=== PATIENT | female | born 1990 | race Caucasian/White ===

== ENCOUNTER 2019-10-09 10:19 | Inpatient (IN) | payer OTHER ==
[2019-10-09] VITALS (39 sets, daily range): BP systolic 97–137; BP diastolic 50–85
[~2019-10-09] VITALS: Ht 165.1 cm; Wt 82.0 kg
[2019-10-09] MEDS ORDERED: PRENTAB9 PO (10:50)
[2019-10-09] MEDS ORDERED: MAPA500T2 PO (10:50)
[2019-10-09] MEDS ORDERED: TRIA25CR TOP (10:52)
[2019-10-09] MEDS ORDERED: FISH1000 PO (10:52)
[2019-10-09] MEDS ORDERED: DERM1TAB2 PO (10:52)
[2019-10-09] MEDS: LACTATED RINGER'S 1000 ML IV STA ×2 (11:18→12:00)
[2019-10-09] MEDS ORDERED: OXYTOCIN DRIP 30 UNITS in IV 1 EA IV SCH ×2 (11:30→21:19)
[2019-10-09 11:59] LABS: BASO % 0.2 % (0.0-1.0); EOS % 0.1 % (0.0-3.0); HEMATOCRIT 36.4 % (36.0-47.0); HEMOGLOBIN 12.3 g/dl (12.0-15.5); LYMPH # 1.1 10^3/uL (1.5-5.0); LYMPH % 7.1 % (24.0-44.0); MEAN CORPUSCULAR HEMOGLOBIN 29.4 pg (27.0-33.0); MEAN CORPUSCULAR HGB CONC 33.8 g/dl (32.0-36.5); MEAN CORPUSCULAR VOLUME 87.1 fl (80.0-96.0); MONO # 0.9 10^3/uL (0.0-0.8); MONO % 5.6 % (0.0-5.0); NEUTROPHILS # 13.6 10^3/uL (1.5-8.5); NEUTROPHILS % 86.4 % (36.0-66.0); PLATELET COUNT, AUTOMATED 227 10^3/uL (150-450); RED BLOOD COUNT 4.18 10^6/uL (4.00-5.40); WHITE BLOOD COUNT 15.8 10^3/uL (4.0-10.0)
[2019-10-09] MEDS: LR 1,000 ML IV SCH ×3 (12:00→16:09)
[2019-10-09] MEDS ORDERED: FENTANYL 2MCG/ML ROPIVACAINE 0.2% IN 0.9% NACL 100ML IVBAG As Ordered ONE (12:55)
[2019-10-09] MEDS ORDERED: diphenhydrAMINE 50MG/ML VIAL (J1200) IV PRN (14:15)
[2019-10-09] MEDS ORDERED: ONDANSETRON 4MG/2ML VIAL IV PRN (14:15)
[2019-10-09] MEDS ORDERED: EPIDURAL COMMENT XX SCH (14:15)
[2019-10-09] MEDS ORDERED: NALOXONE INJ 0.4MG/1ML VIAL (J2310 PER 1MG) IV PRN (14:15)
[2019-10-09] MEDS ORDERED: LACTATED RINGER'S 1000 ML IV PRN (14:15)
[2019-10-09] MEDS ORDERED: REFRIGERATOR IV KEYS XX PRN (14:15)
[2019-10-09] MEDS ORDERED: EPIDURAL/PCA KEYS XX PRN (14:15)
[2019-10-09] MEDS ORDERED: FENTANYL/ROPIVACAINE/NACL BAG 100 ML EPIDURAL SCH (14:15)
[2019-10-09] MEDS: ePHEDrine SULFATE 25 MG/5 ML(5MG/ML) SYRINGE IV PRN ×3 (14:21→14:28)
[2019-10-09] MEDS ORDERED: cefTRIAXone SOD 1 GM in D5W MINI-BAG PLUS 50 ML IV ONE (19:00)
[2019-10-09] MEDS ORDERED: ACETAMINOPHEN 650 MG SUPP PR ONE (19:00)
--- NOTE | 2019-10-09 21:23 | DNPDOC ---
[facility] Delivery Note Delivery Note DATE OF DELIVERY: 10/09/2019 PREDELIVERY DIAGNOSIS: 40-4/7 weeks' gestation and labor. POST DELIVERY DIAGNOSIS: Delivered. PROCEDURE: Spontaneous vaginal delivery. HOOKMAN: Dr. Hogan ANESTHESIA: Epidural. ESTIMATED BLOOD LOSS: 400 mL. FINDINGS: 7 pound 0 ounce 3480gm boy infant, Score 9/9, nuchal cord times x1. DELIVERY SUMMARY: Patient is a 29-year-old 1 now para 1 who was admitted to labor and delivery for active labor for 12hours. Patient AROM clear around 1451. Baby [boy] head was delivered without difficulty over intact perineum in OA position at 2041. The nose and mouth were bulb suctioned. x1 nuchal cord was noted. The shoulders were then delivered without difficulty. Infant was handed on mother's belly. Cord was then clamped x2 and cut after pulsation. Pitocin bolus was started. Perineum and vagina was inspected and found to have a 2nd degree laceration. This was repaired with 2-0 chromic after the EAS was reinforced with 2 figure of 8 stitches with 0 vicryl. The placenta was then delivered at 2045 spontaneously intact. Cord had a 3 vessel cord. EBL was 400mL. The vagina and perineum were reinspected and no further lacerations were found and hemostasis was good. Fundus was firm. Patient tolerated delivery well. Connie Hogan MD October 09, 2019 19:08
[2019-10-09] MEDS ORDERED: ACETAMINOPHEN 500 MG TAB PO PRN (21:30)
[2019-10-09] MEDS ORDERED: ONDANSETRON 4 MG ORAL DISINTEGRATING TAB PO PRN (21:30)
[2019-10-09] MEDS ORDERED: diphenhydrAMINE 25MG CAP PO PRN (21:30)
[2019-10-09] MEDS ORDERED: MEASLES,MUMPS,RUBELLA VACCINE INJ (MMR-II) (90707) SC SCH (21:30)
[2019-10-09] MEDS ORDERED: SIMETHICONE 80 MG CHEW TAB PO PRN (21:30)
[2019-10-09] MEDS ORDERED: CALCIUM CARBONATE 500 MG CHEW U/D PO PRN (21:30)
[2019-10-09] MEDS ORDERED: METHYLERGONOVINE MALEATE 0.2 MG TAB PO PRN (21:30)
[2019-10-09] MEDS ORDERED: DIBUCAINE 1% OINTMENT 30GM TOP PRN (21:30)
[2019-10-09] MEDS ORDERED: MOM 30ML SUSPENSION UDC PO PRN (21:30)
[2019-10-10 06:15] VITALS: BP 128/77
--- NOTE | 2019-10-10 06:45 | IPNPDOC ---
Progress Note Date of Service: October 10, 2019 Day#: 1 Progress Note SUBJECT: Patient is a 29-year-old 1 now Para 1 status post uncomplicated spontaneous vaginal delivery with post 2nd degree laceration and repair, doing well day # 1. She has been ambulating, voiding spontaneously without issue and tolerating regular diet. Breast feeding without issue. Reports lochia is like a normal period. Patient is ambulating well. Reports some cramping with . Having tolerable pain especially with walking and getting up/down. OBJECTIVE: VITAL SIGNS: Within normal limits, afebrile. GENERAL: No acute distress HEENT: MMM BREAST: Nontender, no erythema CARDIOVASCULAR EXAMINATION: RRR RESPIRATORY EXAMINATION: Bilaterally clear ABDOMINAL EXAMINATION: Soft, appropriate tenderness, nondistended, fundus -2 PERINEUM: Intact, minimal lochia EXTREMITIES: mild edema, nontender ASSESSMENT: Patient is a 29-year-old 1 now Para 1 status post uncomplicated spontaneous vaginal delivery with post 2nd degree laceration and repair, doing well day # 1. Vitals within normal limits, afebrile, hemodynamically stable with no evidence of infection. PLAN: 1. Continue care.. 2. Tylenol and Motrin for pain. 3. Encourage breast feeding and ambulation. VS, I&O, [facility]H, [facility] Vital Signs/I&O Vital Signs Date Time Temp Pulse Resp B/P (MAP) Pulse Ox O2 Delivery O2 Flow Rate FiO2 10/09/19 18:17 123 20 131/67 (88) 10/09/19 18:12 100.4 10/09/19 14:25 100 Room Air Laboratory Data 24H LABS Laboratory Tests 2 10/09/19 11:26: Serology Scanned Report Hepatitis B Testing 10/09/19 11:45: Immature Granulocyte % (Auto) 0.6, Neutrophils (%) (Auto) 86.4H, Lymphocytes (%) (Auto) 7.1L, Monocytes (%) (Auto) 5.6H, Eosinophils (%) (Auto) 0.1, Basophils (%) (Auto) 0.2, Neutrophils # (Auto) 13.6H, Lymphocytes # (Auto) 1.1L, Monocytes # (Auto) 0.9H, Eosinophils # (Auto) 0.0, Basophils # (Auto) 0.0, Nucleated Red Blood Cells % (auto) 0.0 CBC/BMP Laboratory Tests 10/09/19 11:45 Connie Hogan MD October 09, 2019 19:12
[2019-10-10] MEDS: DOCUSATE SODIUM 100 MG CAP PO SCH ×2 (07:53→21:53)
[2019-10-10] MEDS: PRENATAL VITAMINS CHEWABLE TABLET PO SCH (07:53)
[2019-10-10] MEDS: IBUPROFEN 800 MG TAB PO PRN ×2 (07:55→18:26)
[2019-10-10 18:00] VITALS: BP 108/70
[2019-10-11 05:44] VITALS: BP 108/72
[2019-10-11] MEDS: DOCUSATE SODIUM 100 MG CAP PO SCH ×2 (07:28→20:22)
[2019-10-11] MEDS: PRENATAL VITAMINS CHEWABLE TABLET PO SCH (07:28)
[2019-10-11] MEDS: IBUPROFEN 800 MG TAB PO PRN (07:29)
--- NOTE | 2019-10-11 07:41 | IPNPDOC ---
Progress Note Date of Service: October 11, 2019 Day#: 1 Progress Note SUBJECT: patient is a 29 yo S/P PPD #1. labor course complicated by chorio. Patient without concerns today. She has been ambulating, voiding spontaneously without issue and tolerating regular diet. Breast feeding without issue. Reports lochia is like a normal period. baby in NICU for maternal diagnosis of chorio. patient plans on oral contraception. OBJECTIVE: VITAL SIGNS: Within normal limits, afebrile. Alert and oriented times three. Abdomen: Fundus firm at U-2. Soft, NTTP. LE: no edema/erythema/tenderness A/P ppd #1, doing well. encourage bf and ambulating. anticipate d/c home tomorrow. DO Tenisha VS, I&O, 24H, [facility] Vital Signs/I&O Vital Signs Date Time Temp Pulse Resp B/P (MAP) Pulse Ox O2 Delivery O2 Flow Rate FiO2 10/11/19 05:44 98.3 85 20 108/72 (84) 100 Room Air AMY LOWRY DO October 11, 2019 07:41
[2019-10-11 19:11] VITALS: BP 116/76
[2019-10-12] MEDS: IBUPROFEN 800 MG TAB PO PRN (07:39)
--- NOTE | 2019-10-12 07:46 | IPNPDOC ---
Progress Note Date of Service: October 12, 2019 Day#: 2 Progress Note SUBJECT: patient is a 29 yo S/P PPD #2. labor course complicated by chorio. Patient without concerns today. She has been ambulating, voiding spontaneously without issue and tolerating regular diet. Breast feeding without issue. Reports lochia is like a normal period. baby in NICU for maternal diagnosis of chorio. patient plans on oral contraception. OBJECTIVE: VITAL SIGNS: Within normal limits, afebrile. Alert and oriented times three. Abdomen: Fundus firm at U-2. Soft, NTTP. LE: mild non pitting edema, no erythema/tenderness A/P ppd #2, doing well. encourage bf and ambulating. D/C home today. DO Tenisha VS, I&O, 24H, Fishbone Vital Signs/I&O Vital Signs Date Time Temp Pulse Resp B/P (MAP) Pulse Ox O2 Delivery O2 Flow Rate FiO2 10/11/19 19:11 98.4 94 16 116/76 (89) 10/11/19 05:44 100 Room Air AMY LOWRY DO October 12, 2019 07:46
--- NOTE | 2019-10-12 08:08 | OBDS ---
[facility] Obstetrical Discharge Sum. Obstetrical Discharge Summary Date: October 12, 2019 : 1 Term: 1 Pre-term: 0 Abortions: 0 Livin VDRL: Non-Reactive Rh: Positive Rubella: Immune Infant Sex: Male Infant Weight: pounds (7), ounces (0) Anesthesia: Regional Anesthesia A/P, Post Course List any complications Admission diagnosis: Labor at 40+3wks Discharge diagnosis: () Condition at Discharge: stable Discharge Instructions: Home Activity: as tolerated Diet: regular Medications: filled at [facility] Follow-up: 6-8wks Hospital course: Patient presents to in labor at term. She progressed to have a spontaneous vaginal delivery. Peripartum course complicated by chorioamnionitis, treated with IV antibiotics. course uncomplicated. Patient discharged home on day #2. AMY LOWRY DO October 12, 2019 08:08
[2019-10-12] MEDS: DOCUSATE SODIUM 100 MG CAP PO SCH (09:21)
[2019-10-12] MEDS: PRENATAL VITAMINS CHEWABLE TABLET PO SCH (09:22)
== END 2019-10-12 09:50 | disposition home or self-care (01) | DRG 807 ==
LOC: M LDO 10:19 → M LDI 11:24 → M OBS 23:37
PROVIDERS: ADMIT Advanced Practice Midwife; ATTEND Advanced Practice Midwife
PROC: 10E0XZZ Delivery of Products of Conception, External Approach (ICD-10-PCS; principal; 2019-10-09)
PROC: 0KQM0ZZ Repair Perineum Muscle, Open Approach (ICD-10-PCS; 2019-10-09)
PROC: 10907ZC Drainage of Amniotic Fluid, Therapeutic from Products of Conception, Via Natural or Artificial Opening (ICD-10-PCS; 2019-10-09)
DX: O48.0 Post-term pregnancy (principal); Z37.0 Single live birth; Z3A.40 40 weeks gestation of pregnancy; O70.1 Second degree perineal laceration during delivery